=== PATIENT | female | born 1985 | race Caucasian/White ===

== ENCOUNTER 2024-03-02 14:52 | Emergency (ER) | payer OTHER ==
[~2024-03-02] VITALS: Ht 152.4 cm; Wt 56.7 kg
[2024-03-02] MEDS ORDERED: Ketorolac Tromethamine 15mg Vial IM ONE (16:50)
[2024-03-02] MEDS ORDERED: Amoxicillin/Clavulanate K 875 MG Tab PO ONE (16:55)
[2024-03-02] MEDS ORDERED: AMOCLA875 PO (16:57)
== END 2024-03-02 17:09 | disposition home or self-care (01) ==
LOC: ER 14:52
DX: K08.89 Other specified disorders of teeth and supporting structures (principal); F17.200 Nicotine dependence, unspecified, uncomplicated; Z91.013 Allergy to seafood
CPT/HCPCS: 96372; 99282-25; A9270; J1885

== ENCOUNTER 2024-05-09 18:53 | Emergency (ER) | payer OTHER ==
[~2024-05-09] VITALS: Ht 157.5 cm; Wt 52.2 kg
[~2024-05-09 18:53] MED LIST: AMOCLA875 PO
== END 2024-05-09 19:37 | disposition home or self-care (01) ==
LOC: ER 18:53
DX: T83.32XA Displacement of intrauterine contraceptive device, initial encounter (principal); Y76.8 Miscellaneous obstetric and gynecological devices associated with adverse incidents, not elsewhere classified; F17.210 Nicotine dependence, cigarettes, uncomplicated; Z91.013 Allergy to seafood
CPT/HCPCS: 99283

== ENCOUNTER 2024-05-10 16:03 | Emergency (ER) | payer OTHER ==
[~2024-05-10] VITALS: Ht 157.5 cm; Wt 63.5 kg
[2024-05-10] MEDS ORDERED: Methadone HCL 10 MG TAB PO ONE (16:55)
== END 2024-05-10 17:19 | disposition home or self-care (01) ==
LOC: ER 16:03
DX: Z76.0 Encounter for issue of repeat prescription (principal); F11.90 Opioid use, unspecified, uncomplicated
CPT/HCPCS: 99281; A9270

== ENCOUNTER 2024-05-11 17:17 | Emergency (ER) | payer OTHER ==
[~2024-05-11] VITALS: Ht 152.4 cm; Wt 61.2 kg
[2024-05-11] MEDS ORDERED: Methadone HCL 10 MG TAB PO ONE ×3 (18:05→20:25)
== END 2024-05-11 20:33 | disposition home or self-care (01) ==
LOC: ER 17:17
DX: Z76.0 Encounter for issue of repeat prescription (principal); Z91.013 Allergy to seafood
CPT/HCPCS: 99281; A9270

== ENCOUNTER 2024-05-12 07:11 | Emergency (ER) | payer OTHER ==
[~2024-05-12] VITALS: Ht 160 cm; Wt 74.8 kg
[2024-05-12] MEDS ORDERED: Methadone HCL 10 MG TAB PO ONE (07:35)
== END 2024-05-12 07:47 | disposition home or self-care (01) ==
LOC: ER 07:11
DX: Z76.0 Encounter for issue of repeat prescription (principal); Z91.013 Allergy to seafood; Z79.899 Other long term (current) drug therapy
CPT/HCPCS: 99281; A9270

== ENCOUNTER → 2024-11-13 | Outpatient (CLI) | payer OTHER | LOC: LAB 17:10 → LAB SHORT 17:10 | PROVIDERS: Physician Assistant | DX: Z12.4 Encounter for screening for malignant neoplasm of cervix (principal) | CPT/HCPCS: 87624; G0123; G0145 ==

== ENCOUNTER → 2025-01-27 | Outpatient (CLI) | payer OTHER ==
[2025-01-27 20:12] LABS: Bacterial Vaginosis PCR Negative (NEGATIVE); Candida Group, PCR NOT DETECTED (NOT DETECT); Candida glabrata-krusei, PCR NOT DETECTED (NOT DETECT)
== END ==
LOC: LAB 17:03 → LAB SHORT 17:03
PROVIDERS: Advanced Practice Midwife
DX: N76.0 Acute vaginitis (principal)
CPT/HCPCS: 81515